=== PATIENT | female | born 1980 | race Asian ===

== ENCOUNTER 2018-12-17 14:52 | Emergency (ER) | payer OTHER, MEDICAID ==
[2018-12-17] MEDS ORDERED: ONDANSETRON (ODT) 4 MG TAB ODT (16:22)
[2018-12-17] MEDS: ONDANSETRON (ODT) 4 MG TAB ODT (16:24)
== END 2018-12-17 18:13 | disposition home or self-care (01) ==
LOC: FTE 14:52
DX: R11.10 Vomiting, unspecified (principal); R19.7 Diarrhea, unspecified
CPT/HCPCS: 99283; Z7610